=== PATIENT | male | born 1950 | race Caucasian/White ===

== ENCOUNTER 2019-02-09 12:06 | Outpatient (CLI) | payer MEDICARE, BC ==
[~2019-02-09] VITALS: Ht 170.2 cm; Wt 97.7 kg
--- NOTE | ~2019-02-09 | HEMODYNAMI ---
PATIENT:SAI AHUMADA MEDICAL RECORD: [id number] : 46 LOCATION:[facility] ADMISSION DATE: 02/09/19 Generatedon:02/09/201915:11 Patient name: SAI AHUMADA Patient #: [id number] SSN: D OB: 1950 Date of study: 02/09/2019 Page: Of Hemodynamic Procedure Report Patient Data Patient Demographics Procedure consent was obtained First Name: SAI Gender: Male Last Name: BRANDYN : 1950 Patient #: [id number] Age: 69 year(s) Race: Unknown Additional ID: [id number] Contact details [address]: [address] [place] [address] State: [place] City: [place] Zip code: [address] Admission Admission Data Admission Date: 02/09/2019 Admission Time: 12:06 Admit Source: Other Procedure Procedure Types Cath Procedure Diagnostic Procedure LHC LHC w/Coronaries Procedure Description Procedure Date Procedure Date: 02/09/2019 Procedure Start Time: 15:03 Procedure End Time: 15:10 Procedure Staff Name Function Eduardo Arguelles MD Performing Physician Raymond Sanford RT Monitor Sue Diaan RN Nurse Josefina Browne RT Scrub Procedure Data Cath Procedure Fluoroscopy Diagnostic fluoroscopy Total fluoroscopy Time: 1.5 time: 1.5 min min Diagnostic fluoroscopy Total fluoroscopy dose: 742 dose: 742 mGy mGy Contrast Material Contrast Material Type Amount (ml) Isovue 300 55 Entry Location Entry Primary Successful Side Size Upsize Upsize Entry Closure To ccessful Closure Location (Fr) 1 (Fr) 2 (Fr) Remarks Device Remarks Radial Right 6 Fr Mechanical artery Short Compression Diagnostic catheters Device Type Used For End Catheter Placement DIAGNOSTIC Cruger 110cm 5 LV Angiography Fr catheter ([id number]) Procedure Complications No complications Procedure Medications Medication Administration Route Dosage 0.9% NaCl I.V. 100 ml/hr Oxygen etCO2 Nasal cannula 2 l/min Lidocaine 2% added to field 20 Heparin Flush Bag added to field 2 bags (1000units/500ml NS) Radial Cocktail added to field 1 syringe (Verapomil 2mg/Nitro 400mcg/Heparin 1500units) Versed I.V. 2 mg Fentanyl I.V. 50 mcg Versed I.V. 1 mg Fentanyl I.V. 50 mcg Hemodynamics Rest Heart Rate: 77 (bpm) Pressure Samples Time Site Value (mmHg) Purpose Heart Use Rate(bpm) 15:05 LV 137/7,17 EDP 91 15:06 LV 135/5,13 Snapshot 99 15:06 AO 82/56(66) Pullback 88 15:06 LV 117/11,9 Pullback 88 Gradients Valve Time Site 1 Site 2 Mean SEP/DFP Peak To Heart Use (mmHg) (sec/min) Peak Rate (mmHg) (bpm) Aortic 15:06 LV AO 20 24 35 88 117/11,9 82/56(66) Calculations Valve P-P Mean Valve Index Valve Source Name Gradient Area Flow (cm2) Aortic 35 20 35 20 Snapshots Pre Cath Intra NCS Post Cath Vital Signs Time Heart Resp SPO2 etCO2 NIBP (mmHg) Rhythm Pain Sedation Rate (ipm) (%) (mmHg) Status Level (bpm) 14:48:10 74 16 98 36.9 152/84(116) NSR 0 (11) 10(A) , No pain 14:52:30 78 14 99 35 143/87(112) NSR 0 (11) 10(A) , No pain 14:56:53 75 12 98 38 152/86(119) NSR 0 (11) 10(A) , No pain 15:01:19 83 15 98 38.4 147/82(116) NSR 0 (11) 10(A) , No pain 15:05:39 87 12 98 42.1 129/100(112) NSR 0 (11) 9(A) , No pain 15:09:57 88 13 98 40 144/83(119) NSR 0 (11) 10(A) , No pain Medications Time Medication Route Dose Verified Delivered Reason Notes E ffectiveness by by 14:46:58 0.9% NaCl I.V. 100 Eduardo Rogers used for ml/hr Kindra Lebron procedure MD JOSEPH 14:47:07 Oxygen etCO2 2 l/min Eduardo Rogers used for Nasal Kindra Lebron procedure cannula MD JOSEPH 14:47:12 Lidocaine 2% added 20ml Eduardo Clark for local to vial [facility] anesthetic field MD BELL 14:47:17 Heparin Flush added 2 bags Eduardo Clark used for Bag to [facility] procedure (1000units/500ml field MD BELL NS) 14:47:24 Radial Cocktail added 1 Eduardo Clark used for (Verapomil to syringe [facility] procedure 2mg/Nitro field MD BELL 400mcg/Heparin 1500units) 14:58:58 Versed I.V. 2 mg Eduardo Sue for [facility] sedation RN 14:59:13 Fentanyl I.V. 50 mcg Eduardo Medinayla for [facility] Diana sedation RN 15:04:25 Versed I.V. 1 mg Eduardo Medinayla for [facility] Diana sedation RN 15:04:29 Fentanyl I.V. 50 mcg Eduardo Floreza for KindraRon ring MD, RN Procedure Log Time Note 14:37:01 Admit Source: Other 14:37:41 Diagnostic Cath status Elective 14:37:47 Josefina Browne RT(R) sent for patient. Start room use. 14:38:06 Time tracking: Regular hours (M-F 7:00 - 5:00) 14:38:18 Plan of Care:Hemodynamics will remain stable., Cardiac rhythm will remain stable., Comfort level will be maintained., Respiratory function will remain adequate., Patient/ family verbilizes understanding of procedure., Procedure tolerated without complication., Recovers from procedure without complications.. 14:46:48 Vital chart was started 14:46:58 0.9% NaCl 100 ml/hr I.V. was administered by Sue Diana RN; used for procedure; 14:47:07 Oxygen 2 l/min etCO2 Nasal cannula was administered by Sue Diana RN; used for procedure; 14:47:12 Lidocaine 2% 20ml vial added to field was administered by Eduardo Arguelles MD; for local anesthetic; 14:47:17 Heparin Flush Bag (1000units/500ml NS) 2 bags added to field was administered by Eduardo Arguelles MD; used for procedure; 14:47:24 Radial Cocktail (Verapomil 2mg/Nitro 400mcg/Heparin 1500units) 1 syringe added to field was administered by Eduardo Arguelles MD; used for procedure; 14:49:18 Patient received from Pre/Post Procedure Room to CCL 1 Alert and oriented. Tansferred to table in Supine position. 14:49:19 Warm blankets applied, and geneva hugger turned on for patient comfort. 14:49:19 Correct patient and procedure confirmed by team. 14:49:21 Signed procedure consent form obtained from patient. 14:49:22 Baseline sample Acquired. 14:49:22 ECG and BP/O2 sat monitors applied to patient. 14:49:28 Rhythm: sinus rhythm 14:49:30 Full Disclosure recording started 14:49:34 H&P Date Dictated: 02/09/2019 Within 30 days and on chart., H&P Addendum completed by physician on day of procedure. (MUST COMPLETE FOR ALL OUTPATIENTS). 14:49:35 Pre-procedure instructions explained to patient. 14:49:36 Pre-op teaching completed and patient verbalized understanding. 14:49:37 Family in waiting room. 14:49:40 Patient NPO since Midnight. 14:49:42 Is the patient allergic to Iodine/contrast media? No. 14:49:43 Was the patient premedicated? No 14:49:44 Is patient on blood thinner?No 14:49:54 Patient diabetic? No. 14:49:57 Previous problem with sedation/anesthesia? No ? 14:50:00 Snore? Yes 14:50:01 Sleep apnea? Yes 14:50:02 Deviated septum? No 14:50:03 Opens mouth fully? Yes 14:50:03 Sticks out tongue? Yes 14:50:08 Airway obstruction? Yes asthma 14:50:11 Dentures? No ? 14:50:14 Pre procedure: right dorsailis pedis pulse 2+ Normal; easily identifiable; not easily obliterated 14:50:17 Pre procedure: left dorsailis pedis pulse 2+ Normal; easily identifiable; not easily obliterated 14:50:18 Patient pain scale 0/10 ?. 14:50:24 IV patent on arrival in left forearm with 0.9% NaCl at [facility]. 14:50:27 Lab results completed and on chart. 14:50:31 Right Radial & Right Groin area was prepped with chlora-prep and draped in sterile fashion 14:50:32 Alarms reviewed by R. N. 14:50:32 Sharps counted by scrub and verified by R.N. 14:58:29 Physician arrived 14:58:29 --------ALL STOP TIME OUT------ 14:58:29 Final Timeout: patient, procedure, and site verified with staff and physician. All members of the team are in agreement. 14:58:32 Right Radial & Right Groin site verified by team. 14:58:37 Maximum allowable Isovue 300 dose 300ml. Physician notified. (300ml for normal creatinines. For patients with creatinine of 1.7 or higher multiply weight(kg) x 5 divided by creatinine.) 14:58:43 Fire Safety Assessment: A--An alcohol-based skin anteseptic being used preoperatively., C--Open oxygen or nitrous oxide is being used., D--An ESU, laser, or fiber-optic light is being used. 14:58:46 Physical assessment completed. ASA score P 2 - A patient with mild systemic disease as per Eduardo Arguelles MD. 14:58:50 Sedation plan: IV Moderate Sedation Medication:Versed, Fentanyl 14:58:58 Versed 2 mg I.V. was administered by Sue Diana RN; for sedation; 14:58:59 Use device set Radial Dx or PCI 14:59:00 ACIST Syringe (45394) opened to sterile field. 14:59:01 Medline Cath Pack ([id number]) opened to sterile field. 14:59:01 Bag Decanter (2002) opened to sterile field. 14:59:02 DIAGNOSTIC WIRE .035 260cm J wire (764996) opened to sterile field. 14:59:02 ACIST Hand Control (48809) opened to sterile field. 14:59:03 ACIST Manifold (33730) opened to sterile field. 14:59:03 Tegaderm 4 x 4 (1626W) opened to sterile field. 14:59:03 MBrace Wrist Support ([id number]) opened to sterile field. 14:59:05 TR BAND Standard ([id number]) opened to sterile field. 14:59:06 SHEATH 6FR Slender (801060) opened to sterile field. 14:59:13 Fentanyl 50 mcg I.V. was administered by Sue Diana RN; for sedation; 15:01:54 Zero performed for pressure channel P1 15:03:11 Procedure started. 15:03:17 Local anesthetic to right radial artery with Lidocaine 2% by Eduardo Arguelles MD.INITIAL ACCESS ONLY 15:03:25 A 6 Fr Short sheath was inserted into the Right Radial artery 15:04: Versed 1 mg I.V. was administered by Sue Diana RN; for sedation; 15::29 Fentanyl 50 mcg I.V. was administered by Sue Diana RN; for sedation; 15:05:08 A DIAGNOSTIC Cruger 110cm 5 Fr catheter (117290) was advanced over the wire and used for LV Angiography. 15:05:32 LV angiography performed. 15:06:11 EF : 55 % 15:06:19 LCA angiography performed. 15:08:09 RCA angiography performed. 15::32 Catheter removed. 15:08:40 Sheath removed intact; hemostasis achieved with Mechanical Compression to the Right Radial artery. 15:08:46 Contrast amount:Isovue 300 55ml. 15:08:48 Procedure ended.(Physican Out) 15:09:28 Fluoroscopy time 01.50 minutes. 15:09:36 Flurop Dose total: 742 15:09:36 Fluoroscopy dose: 742 mGy 15:09:39 Sharps counted by scrub and verified by R.N. 15:09:42 TR band inflated with 11cc of air. 15:09:43 Insertion/operative site no bleeding no hematoma. 15:09:48 Post-op/insertion site Right Radial artery dressed using a 4 x 4 and Tegaderm. 15:09:55 Post right radial artery:stable 15::57 Post Procedure Pulses reassessed and unchanged 15:10:04 Post procedure: right radial pulse 1+ Palpable, but thready & weak; easily obliterated. 15:10:08 Post procedure rhythm: sinus rhythm 15:10:18 Post procedure instruction explained to patient.Patient verbalizes understanding. 15:10:19 Procedure and supply charges have been captured, reviewed, submitted and are correct. 15:10:42 Procedure Complication : No complications 15:10:45 Vital chart was stopped 15::45 See physician's report for complete and final results. 15:10:52 Report given to Pre/Post Procedure Room. 15:10:55 Patient transfered to Pre/Post Procedure Room with Stretcher. 15:10:57 Procedure ended. 15:10:57 Full Disclosure recording stopped 15:11:00 End room use (Document Last) Device Usage Item Name Manufacture Quantity Catalog Hospital Part Current Minimal Lot# / Number Charge Number Stock Stock Serial# Code ACIST Acist 1 23473 323554 368578 192908 20 Syringe Medical (40986) Systems Inc Medline Medline 1 [id number] 003289 29724 014418 5 Cath Pack ([id number]) Bag Microtek 1 2001S 006334 71436 717121 5 Decanter Medical Inc. (2001S) DIAGNOSTIC [place] 1 495696 598140 766333 689569 30 WIRE .035 260cm J wire (026129) ACIST Hand Acist 1 62347 007051 981860 460199 5 Control Medical (32957) Systems Inc ACIST Acist 1 65325 849514 547342 120750 5 Manifold Medical (32368) Systems Inc Tegaderm 4 3M 1 1626W 533504 051975 490618 5 x 4 (1626W) MBrace Advanced 1 140-0250-00 735708 87067 241155 5 Wrist Vascular Support Dynamics (482331990) TR BAND Terumo 1 [id number] 991239 554551 632546 40 Standard ([id number]) SHEATH 6FR Terumo 1 [id number] 081561 133295 849697 5 Slender (80-1060) DIAGNOSTIC Terumo 1 40-2925 810895 191674 459060 5 Cruger 110cm 5 Fr catheter (726245) Signature Audit [place] Stage Time Signature Unsigned Intra-Procedure 02/09/2019 Raymond Sanford RT(R) 3:11:24 PM Signatures Monitor : Raymond Sanford RT Signature : Date : Time : [facility] [address] [place] [address]
[2019-02-09] MEDS ORDERED: VOLTAREN75 MG PO (12:22)
[2019-02-09] MEDS ORDERED: ADVAIR HFA [SP]12 GM INH (12:22)
[2019-02-09] MEDS ORDERED: COZAAR25 MG PO (12:23)
[2019-02-09] MEDS ORDERED: ARMOUR THYROID30 MG PO (12:23)
[2019-02-09] MEDS ORDERED: ZOCOR40 MG (12:24)
[2019-02-09] MEDS ORDERED: ASPIRIN81 MG PO (12:24)
[2019-02-09] MEDS ORDERED: FOLIC ACID1 MG PO (12:25)
[2019-02-09] MEDS ORDERED: METAMUCIL PACKE1 PKT PO (12:25)
[2019-02-09] MEDS ORDERED: GLUCOPHAGE XR750 MG PO (12:25)
[2019-02-09 12:36] VITALS: BP 141/71; Ht 170.2 cm; Wt 97.7 kg
[2019-02-09 12:56] LABS: ANION GAP 12.6 mmol/L (8-16); CALCIUM 9.1 mg/dL (8.5-10.1); CARBON DIOXIDE 27.3 mmol/L (21.0-32.0); CREATININE - SERUM 1.2 mg/dL (0.6-1.3); POTASSIUM - SERUM 3.9 mmol/L (3.5-5.1)
[2019-02-09 13:55] LABS: BASOPHILS 0.3 % (0-2); HEMOGLOBIN 15.4 g/dL (13.5-17.5); IMMATURE GRANULOCYTES 0.5 % (0-5); LYMPHOCYTES 27.4 % (15-50); MCH 31.2 pg (26.0-34.0); MCV 89.2 fL (80.0-100.0); MEAN PLATELET VOLUME 9.6 fL (7.4-10.4); MONOCYTES 9.5 % (2-11); NEUTROPHILS 61.3 % (40-80); PLATELET COUNT 393 10x3/uL (130-400); RBC 4.93 10x6/uL (4.20-6.10); RDW 12.8 % (11.5-14.5); WBC 10.9 10x3/uL (4.8-10.8)
--- NOTE | 2019-02-09 15:40 | NUR ---
PATIENT AWAKE, SITTING UP IN BED. VSS ON ROOM AIR. RIGHT TR BAND IN PLACE, NO S/S OF BLEEDING OR HEMATOMA. GIVEN TURKEY SANDWICH AND COFFEE PER REQUEST, NO N/V. FAMILY PRESENT AT BEDSIDE.
--- NOTE | 2019-02-09 16:10 | NUR ---
INITIATE AIR REMOVAL PROTOCOL FOR TR BAND, NO S/S OF BLEEDING OR HEMATOMA. 5CC OF AIR REMOVED. VSS ON ROOM AIR. NO C/O PAIN, NUMBNESS, OR TINGLING.
--- NOTE | 2019-02-09 16:40 | NUR ---
5CC OF AIR REMOVED FROM TR BAND, NO S/S OF BLEEDING OR HEMATOMA. NO C/O PAIN, NUMBNESS, OR TINGLING. IV REMOVED. VSS ON ROOM AIR.
--- NOTE | 2019-02-09 16:50 | NUR ---
SMALL AMOUNT OF BLEEDING NOTED FROM TR BAND, 3CC OF AIR REPLACED WITH NO FURTHER S/S OF BLEEDING OR HEMATOMA. WILL CONTINUE TO MONITOR.
--- NOTE | 2019-02-09 17:15 | NUR ---
NO FURTHER S/S OF BLEEDING OR HEMATOMA, 5CC OF AIR REMOVED. DRESSING APPLIED TO RIGHT RADIAL SITE, CDI. VSS ON ROOM AIR. EDUCATION REGARDING DISCHARGE INSTRUCTIONS GIVEN TO PATIENT AND SPOUSE, ALL QUESTIONS ANSWERED, PATIENT VOICES UNDERSTANDING. PATIENT VOIDED PER URINAL WITHOUT DIFFICULTY.
--- NOTE | 2019-02-09 17:30 | NUR ---
RIGHT RADIAL DRESSING IS CDI, NO S/S OF BLEEDING OR HEMATOMA. PATIENT TRANSPORTED VIA WHEELCHAIR TO CAR WITH SPOUSE DRIVING, ALL BELONGINGS WITH PATIENT.
--- NOTE | 2019-02-10 13:45 | OP ---
PATIENT NAME: SAI AHUMADA MEDICAL RECORD: [id number] :46 LOCATION:[facility] ADMISSION DATE: SURGEON: ROBERTO TALAMANTES MD DATE OF OPERATION: 02/09/2019 PROCEDURE: Left heart catheterization, selective coronary angiography, right radial approach. CATHETERS: [place] catheter, radial sheath. The procedure was well tolerated. The patient was returned to the [facility]. Sheath was removed. TR band was placed. FINDINGS: Left ventriculography in 30-degree DUNBAR view: Normal wall motion. Normal systolic function. CORONARY ANATOMY: LEFT MAIN: Left main is free of disease. LAD: LAD has mild luminal irregularities, but no flow obstructive disease. CIRCUMFLEX: Large circumflex free of disease. RIGHT CORONARY ARTERY: The right coronary artery is a somewhat codominant system, free of disease. IMPRESSION: Normal systolic function, no significant coronary artery disease. TRANSINT:[id number] Voice Confirmation ID: [id number] DOCUMENT ID: [id number] ROBERTO TALAMANTES MD at 1345 CC: [id number] DICTATION DATE: 02/09/19 1514 DEVELOPMENT TECHNICIAN: 02/09/19 1543 DEP CLI 02/09/19 [facility] [address] [place] [address]
== END 2019-02-09 17:30 ==
LOC: D.CATH 12:06
PROVIDERS: ATTEND Internal Medicine Interventional Cardiology
DX: I20.9 Angina pectoris, unspecified (principal); R06.02 Shortness of breath; Z01.812 Encounter for preprocedural laboratory examination